=== PATIENT | female | born 1995 | race Caucasian/White ===

== ENCOUNTER 2017-07-29 19:30 | Emergency (ER) | payer OTHER ==
[~2017-07-29] VITALS: Ht 165.1 cm; Wt 54.4 kg
[2017-07-29] MEDS ORDERED: CYCL10 PO (21:06)
== END 2017-07-29 21:10 | disposition home or self-care (01) ==
LOC: ER 19:30
DX: S39.92XA Unspecified injury of lower back, initial encounter (principal); V43.52XA Car driver injured in collision with other type car in traffic accident, initial encounter
CPT/HCPCS: 99282